=== PATIENT | female | born 1945 | race Caucasian/White ===

== ENCOUNTER 2024-11-21 21:07 | Observation (INO) ==
[2024-11-21] MEDS: DUONEB NEB STA (21:32)
[2024-11-21 21:33] LABS: BASOPHILS % (AUTO) 0.4 % (0.0-3.0); EOSINOPHILS # (AUTO) 0.1 K/ul (0.0-0.7); EOSINOPHILS % (AUTO) 0.6 % (0.0-7.0); HEMATOCRIT 47.9 % (37.0-47.0); HEMOGLOBIN 14.6 g/dl (12.0-16.0); IMMATURE GRANULOCYTE % (AUTO) 0.1 % (0.0-5.0); LYMPHOCYTES # (AUTO) 2.8 K/uL (0.60-3.4); LYMPHOCYTES % (AUTO) 34.9 (10.0-50.0); MEAN CORPUSCULAR HEMOGLOBIN 27.9 pg (27.0-31.0); MEAN CORPUSCULAR HGB CONC 30.5 (31.8-35.4); MEAN CORPUSCULAR VOLUME 91.4 fl (81.0-99.0); MONOCYTES # (AUTO) 0.8 K/uL (0.4-2.0); MONOCYTES % (AUTO) 9.9 (0-10); NEUTROPHILS # (AUTO) 4.3 K/ul (2.0-6.9); NEUTROPHILS % (AUTO) 54.1 % (42.2-75.2); PLATELET COUNT 219 10^3/uL (140-440); RDW COEFFICIENT OF VARIATION 13.5 % (11.6-14.8); RED BLOOD COUNT 5.24 10^6/ul (4.20-5.40); WHITE BLOOD COUNT 7.96 K/ul (4.6-10.2)
[2024-11-21] MEDS: ZOFRAN SDV IVP STA (21:41)
[2024-11-21] MEDS: MORPHINE 4 MG/ML SYRINGE IVP ONE (21:41)
[2024-11-21] MEDS: DECADRON IVP ONE (21:41)
[2024-11-21 21:54] LABS: ALANINE AMINOTRANSFERASE 15.1 U/L (0-35); ALBUMIN 4.51 g/dL (3.5-5.0); ALKALINE PHOSPHATASE 72.7 U/L (53-141); ASPARTATE AMINO TRANSFERASE 25.5 U/L (14-36); BILIRUBIN,TOTAL 0.62 mg/dL (0.2-1.3); BLOOD UREA NITROGEN 22.6 mg/dL (7-17); CALCIUM 9.99 mg/dL (8.4-10.2); CARBON DIOXIDE 25.6 mmol/L (22-30.0); CHLORIDE 102.9 mmol/L (98-107); CREATININE 0.93 mg/dL (0.60-1.30); GLUCOSE 90.5 mg/dL (74-106); MAGNESIUM 1.98 mg/dL (1.6-2.3); POTASSIUM 4.22 mmol/L (3.5-5.1); SODIUM 142.1 mmol/L (134.5-145); TOTAL PROTEIN 7.73 g/dL (6.3-8.2)
[2024-11-21 21:57] LABS: MOLECULAR FLU A NEGATIVE BY NAAT (NEGATIVE); MOLECULAR FLU B NEGATIVE BY NAAT (NEGATIVE); SARS COV-2 RNA RAPID NAAT NEGATIVE (NEGATIVE)
--- NOTE | 2024-11-21 22:00 | DI ---
EXAM: CHEST RADIOGRAPH TECHNIQUE: Single frontal chest radiograph. HISTORY: cp/sob COMPARISON: 01/25/2023 IMPRESSION: No acute findings. The heart size is normal. Mediastinal contours and pulmonary vasculatu re are within normal limits. The lungs are clear. There is no pleural effusion. There is no pneumotho rax.
[2024-11-21 22:10] LABS: TROPONIN I < 0.012 ng/ml (0.0000-0.120)
[2024-11-21 22:17] LABS: ABG O2 HGB 86.8 % (95-100); ABG PH 7.42 (7.35-7.45); BEecf 3.4 (-2.0-3.0); HCO3 27.9 (21-28); MetHb 1.2 (0-1.5); TCO2 29.2 (19-24); sO2 87.1 % (94-98); tHb 14.5 g/dl (11.7-17.4)
[2024-11-21] MEDS ORDERED: ORAPRED PO ONE (22:37)
--- NOTE | 2024-11-21 22:42 | ED.PDOC ---
General HPI ED Provider: Dr. TUCKER MILLER DO Chief Complaint: Shortness of Air Stated Complaint: 79-year-old female presents to the ER with shortness of breath. Arrives by EMS. 1 DuoNeb given en route. No hypoxia noted. History of tobacco use. She is not oxygen dependent at home. Patient arrives and denies any headache, chest pain other than occasionally with deep inspiration, she thinks that she may have had a fever, denies abdominal pain, GI or issues. Medical history reviewed in chart. Poor historian with respect to her blood thinner use that is on her electronic record but not readily evident on her paper record provided at bedside. Time Seen by Provider: 11/21/24 21:10 Information Source: Patient and EMT Nursing and Triage Documentation Reviewed and Agree: Yes Opioid Naive vs. Tolerant What is Opioid Naive?: *Opioid Naive implies the patient is not already taking opioids or not chronically receiving opioids on a daily basis. *PRN dosing is not "usually" associated with tolerance. *Patients are at higher risk of over-sedation and aspiration. What is Opioid Tolerant?: *Opioid Tolerance implies less than the expected response to an opioid. *Acquired tolerance is defined by the patient taking 60mg of oral morphine daily (or equianalgesic dose of another opioid) for 1 week or more. *Often associated with chronic pain. *May take more than usual dose to achieve desired pain control. Review of Systems Review Of Systems Constitutional: Reports No symptoms All Other Systems: Reviewed and Negative [facility] Female Reproductive History Menstrual Hx Hysterectomy: No Hx Tubal Ligation: No Physical Exam Physical Exam Appearance: Reports Well-appearing, No pain distress and Well-nourished Eyes: Reports ROCKY, EOMI and Conjunctiva clear ENT: Reports Nose normal and Oropharynx normal Respiratory: Reports Airway patent, Breath sounds clear, Breath sounds equal and Respirations nonlabored Cardiovascular: Reports RRR and Pulses normal GI/: Reports Soft and Nontender Musculoskeletal: Reports Normal strength and ROM intact Skin: Reports Warm, Dry and Normal color Neurological: Reports Sensation intact, Motor intact, Alert and Oriented Psychiatric: Reports Affect appropriate and Mood appropriate Interpretation EKG Interpretation EKG Interpretation By: ED Physician Time of EKG #1: 21:45 Rate: Normal (90) Rhythm: Sinus Ectopy: None [place]: Left ST Segment: Normal Interpretation: Flipped T waves anteriorly. No acute ischemia Radiology Interpretation Radiology Interpretation By: Radiologist Radiology Results: No acute changes Exam Interpreted: CXR Re-Evaluation Re-Evaluation Additional Comments: 79-year-old female presents with shortness of breath. She is not hypoxic nor tachycardic on presentation but she does report shortness of breath and occasional pain with deep inspiration. PE on the differential but less likely given her vital signs and overall presentation. Due to the chest pain however this must remain on the differential. Low suspicion for other acute cardiopulmonary process to include but not limited to ACS, IL, PE, pneumothorax, dissection or tamponade. She is afebrile nontoxic doubt sepsis. She does report the possibility of subjective fever, therefore viral swabs will be obtained in addition to laboratory workup. Will look for signs of various infectious etiologies. Chest x-ray read as stable. ABG obtained which did demonstrate a hypoxemia although she was not acidotic nor appearing to retain CO2 given her history of tobacco use. Given the hypoxemia, we did place supplemental oxygen on her and she was resting comfortably after symptomatic treatment. I discussed case with the hospitalist service who was gracious to accept. On further review of the reported to me that they were able to find in the chart that the patient was known to be noncompliant with her warfarin therefore requested a CTA of the chest prior to moving the patient to the floor 0010: CTA shows a distal/peripheral PE without right heart strain. In setting of a negative troponin and BNP as well as no heart strain on imaging and stable vital signs, this patient will be given a shot of Lovenox and sent to the floor where they could decide to continue the warfarin which she was noncompliant with and has a normal INR here today, or what ever other choice they may consider Physician Progress Note Physician Progress Note: All EKGs and plain film imaging independently reviewed and interpreted by me unless stated otherwise. CTs interpreted by radiology unless otherwise stated. All pediatric patients are accompanied by parent or legal guardian as primary historian and/or validate patient report unless otherwise stated. Critical Care Note Critical Care Note Total Critical Care Time (mins): 150 Comments: Critical care due to the patient's chest pain and need for workup for chest pain rule out. Found to have hypoxemia on ABG and supplemental oxygen given to prevent endorgan damage. PE then later identified and antiplatelet therapy immediately started to prevent life-threatening sequelae if left untreated. Course Course 11/21/24 21:27 11/21/24 21:27 Orders, Labs, Meds: Lab Review 11/21/24 11/21/24 21:27 22:10 WBC 7.96 RBC 5.24 Hgb 14.6 Hct 47.9 H MCV 91.4 MCH 27.9 MCHC 30.5 L RDW Coeff of Maryellen 13.5 Plt Count 219 Immature Gran % (Auto) 0.1 Neut % (Auto) 54.1 Lymph % (Auto) 34.9 Whitley % (Auto) 9.9 Eos % (Auto) 0.6 Baso % (Auto) 0.4 Neut # (Auto) 4.3 Lymph # (Auto) 2.8 Whitley # (Auto) 0.8 Eos # (Auto) 0.1 Baso # (Auto) 0.0 Immature Gran # (Auto) 0.0 PT 9.7 INR 0.93 Puncture Site [place] [employer] Excess 3.4 H O2 Saturation 87.1 L ABG pH 7.42 ABG pCO2 43.0 ABG pO2 52.0 L* ABG HCO3 27.9 ABG Total CO2 29.2 H Salvador Test Pos Hemoglobin 1.2 Oxyhemoglobin 86.8 L Carboxyhemoglobin 4.0 H Total Hemoglobin 14.5 FiO2 % 21.0 Sodium 142.1 Potassium 4.22 Chloride 102.9 Carbon Dioxide 25.6 Anion Gap 17.82 BUN 22.6 H Creatinine 0.93 Estimated GFR (MDRD) 58.00 BUN/Creatinine Ratio 24.30 Glucose 90.5 Calcium 9.99 Magnesium 1.98 Total Bilirubin 0.62 AST 25.5 ALT 15.1 Alkaline Phosphatase 72.7 Troponin I < 0.012 NT-Pro-B Natriuret Pep 61 Total Protein 7.73 Albumin 4.51 Globulin 3.22 Albumin/Globulin Ratio 1.40 Influ A Molecular Assay Negative by naat Influ B Molecular Assay Negative by naat SARS CoV-2 RNA Rapid JAYMIE Negative Orders Category Date Time Status ADMIT OBSERVATION [PLACE PATIENT OBSERVATION] .TO ADMISSION 11/21/24 22:41 Active MEDSURG (MONITORED BED) ABG DRAW REQUEST Stat CARDIO 11/21/24 21:13 Completed EKG-(ED ONLY) Stat CARDIO 11/21/24 21:13 Completed NEBULIZER TREATMENT Routine CARDIO 11/21/24 22:47 Ordered NEBULIZER TREATMENT Stat CARDIO 11/21/24 21:13 Completed OXYGEN Routine CARDIO 11/21/24 22:46 Ordered ACTIVITY .Early Mobilization for VTE Prevention CARE 11/21/24 22:45 Active INTAKE & OUTPUT Q8HR CARE 11/21/24 22:45 Active TELEMETRY MONITORING TELE CARE 11/21/24 22:41 Active VITAL SIGNS Q4HR CARE 11/21/24 22:45 Active CARDIAC DIET DIETARY 11/22/24 Breakfast Ordered ABG COOX Stat LAB 11/21/24 22:10 Completed CBC W/ AUTO DIFF DAILY@0600 LAB 11/22/24 06:00 Ordered CBC W/ AUTO DIFF DAILY@0600 LAB 11/23/24 06:00 Ordered CBC W/ AUTO DIFF Stat LAB 11/21/24 21:27 Completed CMP [COMPREHENSIVE METABOLIC PANEL] Stat LAB 11/21/24 21:27 Completed COMPREHENSIVE METABOLIC PANEL DAILY@0600 LAB 11/22/24 06:00 Ordered COMPREHENSIVE METABOLIC PANEL DAILY@0600 LAB 11/23/24 06:00 Ordered COVID [SARS COV-2 RNA RAPID JAYMIE] Stat LAB 11/21/24 21:27 Completed ED PROBNP [NT-PROBNP(ED)] Stat LAB 11/21/24 21:27 Completed FLU A & B MOLECULAR [FLU A/B MOLECULAR] Stat LAB 11/21/24 21:27 Completed INR [PT WITH INR] Stat LAB 11/21/24 21:27 Completed MAGNESIUM Stat LAB 11/21/24 21:27 Completed TROPONIN I Stat LAB 11/21/24 21:27 Completed Acetaminophen [Tylenol] Meds 11/21/24 22:45 Active 650 mg PO Q4H PRN Albuterol Sulfate 0.083% Neb [Albuterol 0.083% Neb] Meds 11/21/24 22:45 Active 2.5 mg NEB RTQ4H PRN Azithromycin [Zithromax] Meds 11/21/24 23:00 Active 500 mg PO DAILY@2300 Ceftriaxone/D5w 1 gm Premix [Rocephin 1 gm/50 ml D5w] Meds 11/21/24 23:00 Discontinued 1 gm in 50 ml IV DAILY Dexamethasone Sod Phosphate [Decadron] Meds 11/21/24 21:13 Discontinued 10 mg IVP ONCE ONE Ipratropium/Albuterol Neb [Duoneb] Meds 11/21/24 21:13 Discontinued 3 ml NEB ONCE STA Ipratropium/Albuterol Neb [Duoneb] Meds 11/22/24 00:00 Active 3 ml NEB RTQ6H Methylprednisolone Sod Succ/Pf [Solu-Medrol 40 mg] Meds 11/22/24 05:00 Active 40 mg IVP Q8HR Morphine Sulfate [Morphine 4 mg/ml Syringe] Meds 11/21/24 21:34 Discontinued 4 mg IVP ONCE ONE Ondansetron HCl/Pf [Zofran Sdv] Meds 11/21/24 21:34 Discontinued 4 mg IVP ONCE STA CHEST, 1V AP ONLY Stat RADS 11/21/24 21:13 Completed Medications Generic Name Dose Route Start Last Admin Trade Name Freq PRN Reason Stop Dose Admin Acetaminophen 650 mg 11/21/24 22:45 Acetaminophen 325 Mg Tablet PO Q4H PRN Mild Pain Albuterol Sulfate 2.5 mg 11/21/24 22:45 Albuterol Sulfate 0.083% Vial.Neb NEB RTQ4H PRN Wheezing Albuterol/Ipratropium 3 ml 11/22/24 00:00 Ipratropium/Albuterol Vial.Neb NEB RTQ6H LUCÍA Aspirin 81 mg 11/22/24 07:30 Aspirin 81 Mg Tab.Chew PO DAILYWM2 [facility] Atorvastatin Calcium 80 mg 11/22/24 09:00 Atorvastatin Calcium 20 Mg Tablet PO DAILY [facility] Azelastine HCl 2 spray 11/22/24 09:00 Azelastine Hcl 30 Ml Nasal [place] THOMAS BID [facility] Azithromycin 500 mg 11/21/24 23:00 Azithromycin 250 Mg Tablet PO 11/24/24 22:59 DAILY@2300 [facility] Cholecalciferol 5,000 unit 11/22/24 09:00 Cholecalciferol (Vitamin D3) 1,000 Unit (25 Mcg) Tablet PO DAILY [facility] CEFTRIAXONE/D5W 1 GM PREMIX 1 gm in 50 mls @ 100 mls/hr 11/21/24 23:00 Rocephin 1 Gm/50 Ml D5w IV 11/24/24 22:59 DAILY@2300 [facility] Loratadine 10 mg 11/22/24 09:00 Loratadine 10 Mg Tablet PO DAILY [facility] Losartan Potassium 100 mg 11/22/24 09:00 Losartan Potassium 100 Mg Tablet PO DAILY [facility] Methylprednisolone Sodium Succinate 40 mg 11/22/24 05:00 Methylprednisolone Sod Succ/Pf 40 Mg/Ml Vial IVP Q8HR [facility] Montelukast Sodium 10 mg 11/22/24 17:00 Montelukast Sodium 10 Mg Tablet PO QPM [facility] Multivitamins 1 tab 11/22/24 09:00 Multivitamin 1 Tab PO DAILY [facility] Omeprazole 40 mg 11/22/24 06:30 Omeprazole 20 Mg Capsule.Dr PO DAILY@0630 [facility] Ondansetron HCl 4 mg 11/21/24 22:48 Ondansetron Hcl/Pf 4 Mg/2 Ml Sdv IVP Q6H PRN Nausea / Vomiting Discontinued Medications Generic Name Dose Route Start Last Admin Trade Name Freq PRN Reason Stop Dose Admin Albuterol/Ipratropium 3 ml 11/21/24 21:13 11/21/24 21:32 Ipratropium/Albuterol Vial.Neb NEB 11/21/24 21:14 3 ml ONCE STA Administration Dexamethasone Sodium Phosphate 10 mg 11/21/24 21:13 11/21/24 21:41 Dexamethasone Sod Phos 10 Mg/Ml Inj IVP 11/21/24 21:14 10 mg ONCE ONE Administration Enoxaparin Sodium 100 mg 11/22/24 00:24 11/22/24 00:30 Enoxaparin Sodium 100 Mg/Ml Syr SUBCUT 11/22/24 00:25 100 mg ONCE STA Administration CEFTRIAXONE/D5W 1 GM PREMIX 1 gm in 50 mls @ 100 mls/hr 11/21/24 23:00 Rocephin 1 Gm/50 Ml D5w IV 11/24/24 22:59 DAILY [facility] Iodixanol 100 ml 11/21/24 23:33 11/21/24 23:35 Iodixanol 320 Mg/Ml 100ml IVP 11/21/24 23:34 100 ml ONCE ONE Administration Morphine Sulfate 4 mg 11/21/24 21:34 11/21/24 21:41 Morphine Sulfate 4 Mg/Ml Syringe IVP 11/21/24 21:35 4 mg ONCE ONE Administration Ondansetron HCl 4 mg 11/21/24 21:34 11/21/24 21:41 Ondansetron Hcl/Pf 4 Mg/2 Ml Sdv IVP 11/21/24 21:35 4 mg ONCE STA Administration Vital Signs: Temp Pulse Resp BP Pulse Ox O2 Del Method O2 Flow Rate 11/21/24 22:23 96 Nasal Cannula 2 11/21/24 21:08 97.3 F L 81 18 140/72 99 Discharge Plan Discharge Patient Disposition: PLACED OBSERVATION Discharge Problem: Hypoxemia, Acute dyspnea, Tobacco use Did you review [place] TRANSPORTATION [place] for ALL controlled substances?: Not Applicable ED Provider: TUCKER MILLER Condition: Stable
[2024-11-21] MEDS ORDERED: TYLENOL PO PRN (22:45)
[2024-11-21] MEDS ORDERED: ALBUTEROL 0.083% NEB NEB PRN (22:45)
[2024-11-21 22:48] LABS: PROTHROMBIN TIME 9.7 SEC (9.3-11.0)
[2024-11-21] MEDS ORDERED: ZOFRAN SDV IVP PRN (22:48)
[2024-11-21] MEDS: VISIPAQUE 320 MG/ML 100ML IVP ONE (23:35)
[2024-11-22] MEDS ORDERED: LOVENOX SUBCUT STA (00:26)
--- NOTE | 2024-11-22 00:27 | CT ---
EXAM: CHEST CTA WITH CONTRAST (PULMONARY ARTERY) HISTORY: Shortness of breath. TECHNIQUE: CTA acquisition of the chest from the thoracic inlet to the upper abdomen following IV con trast administration timed to filling of the pulmonary artery. 3D/MIP/VR images were utilized. COMPARISON: CT angiogram 10/24/2024. FINDINGS: Lines, Tubes, Devices: None. Pulmonary arteries: - Diagnostic quality: Adequate. - Central(Main/Lobar/Interlobar): No embolus. - Peripheral (Segmental/Subsegmental): There are multiple nonocclusive segmental subsegmental emboli in the right lower lobe in the right lower lobe - Right ventricle/Left ventricle ratio (normal <0.9): Normal. - Main pulmonary artery: Normal caliber. Lung Parenchyma, Pleura, and Airways: Trace secretions in the trachea. Mild subpleural atelectasis in the lower lobes. Trace right pleural effusion. Calcified granuloma in the right middle lobe. Thoracic Inlet, Mediastinum, and [place]: Thyroid gland is unremarkable. Calcified granulomas in mediast inum. Heart, Vessels, and Pericardium: Scattered atherosclerotic calcifications in the aorta. Coronary flash ry calcifications. No cariomegaly. Trace pericardial fluid. Bones and Soft Tissues: Multilevel degenerative spondylosis. Osseous demineralization. Degenerative c hanges of the shoulders. Upper Abdomen: Bilateral nephrolithiasis. Benign cysts in the right kidney and the liver. Moderate le ft renal atrophy. Calcified granulomas in the liver and spleen. IMPRESSION: Exam is positive for nonocclusive segmental and occlusive subsegmental emboli in the right lower lobe . No evidence of right heart strain. ASCVD. Bilateral nephrolithiasis. Trace right pleural effusion. Communication: Dr. Pritesh Phillips conveyed the urgent result to Dr. Nguyen Mariee on 11/22/[address] scans are performed using dose optimization techniques as appropriate to the performed exam an d include at least one of the following: Automated exposure control, adjustment of the mA and/or kV according t o size, and the use of iterative reconstruction technique.
[2024-11-22] MEDS: LOVENOX SUBCUT STA (00:30)
[2024-11-22] MEDS: DUONEB NEB SCH (00:33)
[2024-11-22] MEDS: ZITHROMAX PO SCH ×2 (01:23→21:43)
[2024-11-22] MEDS: ROCEPHIN 1 GM/50 ML D5W 1 GM/50 ML BAG IV SCH ×3 (01:24→21:41)
[2024-11-22 02:32] VITALS: BMI 26.0
[2024-11-22] MEDS: SOLU-MEDROL 40 MG IVP SCH (05:37)
[2024-11-22] MEDS: PRILOSEC PO SCH (05:37)
[2024-11-22 05:46] LABS: BASOPHILS % (AUTO) 0.2 % (0.0-3.0); HEMOGLOBIN 13.5 g/dl (12.0-16.0); IMMATURE GRANULOCYTE % (AUTO) 0.2 % (0.0-5.0); LYMPHOCYTES # (AUTO) 0.5 K/uL (0.60-3.4); LYMPHOCYTES % (AUTO) 11.4 (10.0-50.0); MEAN CORPUSCULAR HEMOGLOBIN 28.4 pg (27.0-31.0); MEAN CORPUSCULAR HGB CONC 31.4 (31.8-35.4); MEAN CORPUSCULAR VOLUME 90.5 fl (81.0-99.0); MONOCYTES # (AUTO) 0.1 K/uL (0.4-2.0); MONOCYTES % (AUTO) 1.5 (0-10); NEUTROPHILS # (AUTO) 3.6 K/ul (2.0-6.9); NEUTROPHILS % (AUTO) 86.7 % (42.2-75.2); PLATELET COUNT 166 10^3/uL (140-440); RDW COEFFICIENT OF VARIATION 13.2 % (11.6-14.8); RED BLOOD COUNT 4.75 10^6/ul (4.20-5.40); WHITE BLOOD COUNT 4.11 K/ul (4.6-10.2)
[2024-11-22 06:00] LABS: ALANINE AMINOTRANSFERASE 13.4 U/L (0-35); ALBUMIN 3.87 g/dL (3.5-5.0); ALKALINE PHOSPHATASE 75.3 U/L (53-141); ASPARTATE AMINO TRANSFERASE 21.3 U/L (14-36); BILIRUBIN,TOTAL 0.46 mg/dL (0.2-1.3); BLOOD UREA NITROGEN 19.9 mg/dL (7-17); CALCIUM 9.4 mg/dL (8.4-10.2); CARBON DIOXIDE 24.7 mmol/L (22-30.0); CHLORIDE 103.1 mmol/L (98-107); CREATININE 0.89 mg/dL (0.60-1.30); GLUCOSE 192.1 mg/dL (74-106); POTASSIUM 4.9 mmol/L (3.5-5.1); TOTAL PROTEIN 6.75 g/dL (6.3-8.2)
[2024-11-22] MEDS: COZAAR PO SCH (08:59)
[2024-11-22] MEDS: ASPIRIN CHEWABLE PO SCH (08:59)
[2024-11-22] MEDS: VITAMIN D PO SCH (08:59)
[2024-11-22] MEDS: CLARITIN PO SCH (08:59)
[2024-11-22] MEDS: MULTIVITAMIN TABLET PO SCH (08:59)
[2024-11-22] MEDS: LIPITOR PO SCH (08:59)
[2024-11-22] MEDS: ASTELIN 0.1% NAS SCH (09:00)
--- NOTE | 2024-11-22 11:33 | PCM ---
Date of Service Date Seen by Provider: 11/22/24 Time Seen by Provider: 08:45 Admit Day/Time Admission Date: 11/22/24 Reason for Admission Chief Complaint: HYPOXEMIA Hospital Provider Hospital Provider[facility]S [facility]UMAR[facility] History of Present Illness History of Present Illness: 79 yo female with pmh of GERD, HTN, HLD, smoking, and allergies presented to the ER with complaints of shortness of breath. Per ER provider, patient had no other symptoms and stated she could not breathe. VSS normal. ABG completed and showed PO2 in the 50s. She was placed on 2L. Chest xray normal. Labs normal. Upon review, patient was unsure what medications she takes. Coumadin noted on list but is unsure if she has been taking it and had not had INR checked. PCP noted she prescribed pradaxa due to patient refusing to come in for INR checks but patient has not been taking that. INR was 0.9. Requested CTA due to hx of recurrent DVT and patient found to have nonocclusive and occlusive PE present. Patient unable to provide history due to reported "memory loss". This is also documented in PCP notes. She is oriented to person and place, knows that it is October but states year is 2023, unsure why she is in the hospital and unsure if she is in [place] or where. Does not know how she got to the hospital or why. Lives at home with daughter and son-in-law. Admitted to med/surg observation. Case Discussed With Case Discussed With: Patient's case was discussed with the ER Physicians, Dr. Mariee. [facility] Medical History DVT (deep venous thrombosis) I82.409 - Acute embolism and thrombosis of unspecified deep veins of unspecified lower extremity (ICD-10) Memory loss R41.3 - Other amnesia (ICD-10) Chronic back pain M54.9 - Dorsalgia, unspecified (ICD-10) G89.29 - Other chronic pain (ICD-10) Hypertension I10 - Essential (primary) hypertension (ICD-10) Kidney stone N20.0 - Calculus of kidney (ICD-10) Surgical History H/O lithotripsy Z98.890 - Other specified postprocedural states (ICD-10) Social History Smoking and tobacco status: Current every day smoker Allergies Allergies Allergy/AdvReac Type Severity Reaction Status Date / Time No Known Allergies Allergy Verified 11/21/24 21:08 Current Medications Home Medications Acetaminophen (Acetaminophen 325 Mg Tablet) 650 mg PO Q4H PRN PRN Reason: Mild Pain Albuterol Sulfate (Albuterol Sulfate 0.083% Vial.Neb) 2.5 mg NEB RTQ4H PRN PRN Reason: Wheezing Albuterol/Ipratropium (Ipratropium/Albuterol Vial.Neb) 3 ml NEB RTQ6H LUCÍA Last Admin: 11/22/24 05:09 Dose: 3 ml Aspirin (Aspirin 81 Mg Tab.Chew) 81 mg PO DAILYWM2 LUCÍA Last Admin: 11/22/24 08:59 Dose: 81 mg Atorvastatin Calcium (Atorvastatin Calcium 20 Mg Tablet) 80 mg PO DAILY LUCÍA Last Admin: 11/22/24 08:59 Dose: 80 mg Azelastine HCl (Azelastine Hcl 30 Ml Nasal [place]) 2 spray THOMAS BID LUCÍA Last Admin: 11/22/24 09:00 Dose: 2 spray Azithromycin (Azithromycin 250 Mg Tablet) 500 mg PO BEDTIME LCUÍA Stop: 11/24/24 22:59 Cholecalciferol (Cholecalciferol (Vitamin D3) 1,000 Unit (25 Mcg) Tablet) 5,000 unit PO DAILY LUCÍA Last Admin: 11/22/24 08:59 Dose: 5,000 unit CEFTRIAXONE/D5W 1 GM PREMIX (Rocephin 1 Gm/50 Ml D5w) 1 gm in 50 mls @ 100 mls/hr IV BEDTIME LUCÍA Stop: 11/24/24 22:59 Loratadine (Loratadine 10 Mg Tablet) 10 mg PO DAILY LUCÍA Last Admin: 11/22/24 08:59 Dose: 10 mg Losartan Potassium (Losartan Potassium 100 Mg Tablet) 100 mg PO DAILY LUCÍA Last Admin: 11/22/24 08:59 Dose: 100 mg Methylprednisolone Sodium Succinate (Methylprednisolone Sod Succ/Pf 40 Mg/Ml Vial) 40 mg IVP Q8HR LUCÍA Last Admin: 11/22/24 05:37 Dose: 40 mg Montelukast Sodium (Montelukast Sodium 10 Mg Tablet) 10 mg PO QPM [facility], [facility] Multivitamins (Multivitamin 1 Tab) 1 tab PO DAILY [facility] Last Admin: 11/22/24 08:59 Dose: 1 tab Omeprazole (Omeprazole 20 Mg Capsule.) 40 mg PO DAILY@0630 [facility], [facility] Last Admin: 11/22/24 05:37 Dose: 40 mg Ondansetron HCl (Ondansetron Hcl/Pf 4 Mg/2 Ml Sdv) 4 mg IVP Q6H PRN PRN Reason: Nausea / Vomiting Rivaroxaban (Rivaroxaban 10 Mg Tablet) 15 mg PO BID [facility] Stop: 12/13/24 11:34 aspirin 81 mg tablet 81 mg PO DAILY 11/25/21 [History Confirmed 11/21/24] atorvastatin 80 mg tablet 80 mg PO DAILY 11/25/21 [History Confirmed 11/21/24] loratadine 10 mg tablet 10 mg PO DAILY 11/25/21 [History Confirmed 11/21/24] losartan 50 mg tablet 50 mg PO DAILY 11/25/21 [History Confirmed 11/21/24] montelukast 10 mg tablet 10 mg PO QPM 11/25/21 [History Confirmed 11/21/24] multivitamin 1 tab PO DAILY 11/25/21 [History Confirmed 11/21/24] azelastine 137 mcg (0.1 %) nasal spray 2 spray intranasal BID 11/19/22 [History Confirmed 11/21/24] ondansetron 4 mg disintegrating tablet 4 mg PO Q6H PRN nausea and vomiting #10 tabs 11/19/22 [Rx Confirmed 11/21/24] warfarin 5 mg tablet 5 mg PO DAILY 08/21/23 [History Confirmed 11/21/24] nitrofurantoin macrocrystal 100 mg capsule (Macrodantin) 100 mg PO BEDTIME #7 caps 08/22/23 [Rx Confirmed 11/21/24] methocarbamol 500 mg tablet 500 mg PO QID PRN Back Pain #28 tabs 10/24/24 [Rx Confirmed 11/21/24] cholecalciferol (vitamin D3) 125 mcg (5,000 unit) capsule 125 mcg PO DAILY 11/21/24 [History Confirmed 11/21/24] losartan 100 mg tablet 100 mg PO DAILY 11/21/24 [History Confirmed 11/21/24] omeprazole 40 mg capsule,delayed release 40 mg PO DAILY 11/21/24 [History Confirmed 11/21/24] Opioid Naive vs. Tolerant Does Patient Take Opioids?: No Is Patient Opioid Naive?: Yes What is Opioid Naive?: *Opioid Naive implies the patient is not already taking opioids or not chronically receiving opioids on a daily basis. *PRN dosing is not "usually" associated with tolerance. *Patients are at higher risk of over-sedation and aspiration. Is Patient Opioid Tolerant?: No What is Opioid Tolerant?: *Opioid Tolerance implies less than the expected response to an opioid. *Acquired tolerance is defined by the patient taking 60mg of oral morphine daily (or equianalgesic dose of another opioid) for 1 week or more. *Often associated with chronic pain. *May take more than usual dose to achieve desired pain control. Review of Systems Constitutional: Reports No symptoms Head: Reports Normocephalic Eyes: Reports No symptoms Ears: Reports No symptoms Nose: Reports No symptoms Mouth: Reports No symptoms Throat: Reports No symptoms Cardiovascular: Reports No symptoms Respiratory: Reports Cough and Shortness of air Gastrointestinal: Reports No symptoms Genitourinary: Reports No Symptoms Musculoskeletal: Reports No symptoms Endocrine: Reports No symptoms Hematology: Reports No symptoms Immunology: Reports No symptoms Neurological: Reports No symptoms Psychiatric: Reports No symptoms Physical examination Most Recent Vital Signs: Most Recent Vital Signs Temperature 96.8 F L 11/22/24 10:00 Temperature Source Temporal Artery Scan 11/22/24 10:00 Temperature Source Infrared 11/21/24 21:08 Pulse Rate 71 11/22/24 10:00 Respiratory Rate 14 11/22/24 10:00 Blood Pressure 126/53 L 11/22/24 10:00 Blood Pressure Mean 77 11/22/24 10:00 Blood Pressure Left Arm 144/78 11/22/24 01:00 Blood Pressure Location Right Arm 11/22/24 10:00 Blood Pressure Position Supine 11/22/24 05:59 O2 Sat by Pulse Oximetry 100 11/22/24 10:00 Oxygen Delivery Method Nasal Cannula 11/22/24 10:00 Oxygen Flow Rate 2 11/22/24 10:00 Height 5 ft 6 in 11/22/24 01:00 Weight 73.2 kg 11/22/24 01:00 Telemetry Type Remote Telemetry 11/22/24 07:00 Telemetry Monitoring Continues 11/22/24 07:00 Telemetry Heart Rate 67 11/22/24 07:00 Telemetry SPO2 95 11/22/24 07:00 EKG ID Interval 0.18 11/22/24 07:00 EKG QRS Interval 0.08 11/22/24 07:00 Telemetry Strip Reading sr 11/22/24 07:00 Appearance: Positive No Apparent Distress, Alert and Oriented x3 and Ill- Appearing Skin: Positive Warm and Good Turgor HEENT: Positive Normocephalic and PERRLA Neck: Positive Supple and Midline Trachea Chest/Lungs: Positive Symmetrical With Equal Breath Sounds, Wheezes (mild expiratory lung bases) and Good Air Movement all 4 Lung Phillip Heart: Positive RRR and Pulses Normal GI/: Positive Soft, Nontender, Bowel Sounds Normal and No Distention Musculoskeletal: Positive Not Examined Extremities: Positive Intact Peripheral Pulses, Stable Joints Without Laxity and Good ROM in All Joints Neurological: Positive Sensation Intact, Motor intact, Reflexes Intact, Alert, Oriented (person, place), Disorinted (time, situation) and Muscle Strength 5/5 in Upper and Lower Extremities Bilaterally Labs This Visit Labs This Visit: Labs This Visit 11/21/24 11/21/24 11/22/24 21:27 22:10 05:00 WBC 7.96 4.11 L RBC 5.24 4.75 Hgb 14.6 13.5 Hct 47.9 H 43.0 MCV 91.4 90.5 MCH 27.9 28.4 MCHC 30.5 L 31.4 L RDW Coeff of Maryellen 13.5 13.2 Plt Count 219 166 Immature Gran % (Auto) 0.1 0.2 Neut % (Auto) 54.1 86.7 H Lymph % (Auto) 34.9 11.4 Mcleod % (Auto) 9.9 1.5 Eos % (Auto) 0.6 0.0 Baso % (Auto) 0.4 0.2 Neut # (Auto) 4.3 3.6 Lymph # (Auto) 2.8 0.5 L Mcleod # (Auto) 0.8 0.1 L Eos # (Auto) 0.1 0.0 Baso # (Auto) 0.0 0.0 Immature Gran # (Auto) 0.0 0.0 PT 9.7 INR 0.93 Puncture Site [place] Excess 3.4 H O2 Saturation 87.1 L ABG pH 7.42 ABG pCO2 43.0 ABG pO2 52.0 L* ABG HCO3 27.9 ABG Total CO2 29.2 H Salvador Test Pos Hemoglobin 1.2 Oxyhemoglobin 86.8 L Carboxyhemoglobin 4.0 H Total Hemoglobin 14.5 FiO2 % 21.0 Sodium 142.1 139.0 Potassium 4.22 4.90 Chloride 102.9 103.1 Carbon Dioxide 25.6 24.7 Anion Gap 17.82 16.10 BUN 22.6 H 19.9 H Creatinine 0.93 0.89 Estimated GFR (MDRD) 58.00 62.00 BUN/Creatinine Ratio 24.30 22.35 Glucose 90.5 192.1 H D Calcium 9.99 9.40 Magnesium 1.98 Total Bilirubin 0.62 0.46 AST 25.5 21.3 ALT 15.1 13.4 Alkaline Phosphatase 72.7 75.3 Troponin I < 0.012 NT-Pro-B Natriuret Pep 61 Total Protein 7.73 6.75 Albumin 4.51 3.87 Globulin 3.22 2.88 Albumin/Globulin Ratio 1.40 1.34 Influ A Molecular Assay Negative by naat Influ B Molecular Assay Negative by naat SARS CoV-2 RNA Rapid JAYMIE Negative Imaging Imaging: EXAM: CHEST CTA WITH CONTRAST (PULMONARY ARTERY) FINDINGS: Lines, Tubes, Devices: None. Pulmonary arteries: - Diagnostic quality: Adequate. - Central(Main/Lobar/Interlobar): No embolus. - Peripheral (Segmental/Subsegmental): There are multiple nonocclusive segmental subsegmental emboli in the right lower lobe in the right lower lobe - Right ventricle/Left ventricle ratio (normal <0.9): Normal. - Main pulmonary artery: Normal caliber. Lung Parenchyma, Pleura, and Airways: Trace secretions in the trachea. Mild subpleural atelectasis in the lower lobes. Trace right pleural effusion. Calcified granuloma in the right middle lobe. Thoracic Inlet, Mediastinum, and Malaika: Thyroid gland is unremarkable. Calcified granulomas in mediastinum. Heart, Vessels, and Pericardium: Scattered atherosclerotic calcifications in the aorta. Coronary artery calcifications. No cariomegaly. Trace pericardial fluid. Bones and Soft Tissues: Multilevel degenerative spondylosis. Osseous demineralization. Degenerative changes of the shoulders. Upper Abdomen: Bilateral nephrolithiasis. Benign cysts in the right kidney and the liver. Moderate left renal atrophy. Calcified granulomas in the liver and spleen. IMPRESSION: Exam is positive for nonocclusive segmental and occlusive subsegmental emboli in the right lower lobe. No evidence of right heart strain. ASCVD. Bilateral nephrolithiasis. Trace right pleural effusion. Review Statement Review Statement: I have independently reviewed and interpreted the labs/EKGs/imaging that were ordered by the ER provider. I have reviewed all outside records that are available currently in our EMR including imaging/notes/labs from previous visits. Plan Plan: 1. Acute Hypoxic Respiratory Failure d/t COPD Exacerbation & PE - wean oxygen as tolerated, steroids, nebs 2. COPD Exacerbation - rocephin, azith, steroids, nebs 3. Nonocclusive segmental and occlusive subsegmental PE to R lower lobe - Xarelto 15 mg BID x 21 days then 20 mg daily thereafter 4. HTN - chronic, continue home medications 5. HLD - chronic. continue home medications DVT Prophylaxis: Xarelto Time Spent: Greater than 80 minutes spent with patient, 50% of the time spent with this patient was devoted to counseling and coordination of care. Advanced Care Plannin minutes spent discussing advance care planning. Smoking Cessation: 3-10 minutes spent discussing smoking cessation. Disposition: Admit to: Med/Surg Observation DNR Discussed Plan of Care with Dr. Scotty Edmonds. Medications Medication Orders: Medications Ordered Category Date Time Status Acetaminophen [Tylenol] Meds 11/21/24 22:45 Active 650 mg PO Q4H PRN Albuterol Sulfate 0.083% Neb [Albuterol 0.083% Neb] Meds 11/21/24 22:45 Active 2.5 mg NEB RTQ4H PRN Aspirin [Aspirin Chewable] Meds 11/22/24 07:30 Active 81 mg PO DAILYWM2 Atorvastatin Calcium [Lipitor] Meds 11/22/24 09:00 Active 80 mg PO DAILY Azelastine HCl [Astelin 0.1%] Meds 11/22/24 09:00 Active 2 spray THOMAS BID Azithromycin [Zithromax] Meds 11/22/24 21:00 Active 500 mg PO BEDTIME Ceftriaxone/D5w 1 gm Premix [Rocephin 1 gm/50 ml D5w] Meds 11/22/24 21:00 Active 1 gm in 50 ml IV BEDTIME Cholecalciferol (Vitamin D3) [Vitamin D] Meds 11/22/24 09:00 Active 5,000 unit PO DAILY Ipratropium/Albuterol Neb [Duoneb] Meds 11/22/24 00:00 Active 3 ml NEB RTQ6H Loratadine [Claritin] Meds 11/22/24 09:00 Active 10 mg PO DAILY Losartan Potassium [Cozaar] Meds 11/22/24 09:00 Active 100 mg PO DAILY Methylprednisolone Sod Succ/Pf [Solu-Medrol 40 mg] Meds 11/22/24 05:00 Active 40 mg IVP Q8HR Montelukast Sodium [Singulair] Meds 11/22/24 17:00 Active 10 mg PO QPM Multivitamin [Multivitamin Tablet] Meds 11/22/24 09:00 Active 1 tab PO DAILY Omeprazole [Prilosec] Meds 11/22/24 06:30 Active 40 mg PO DAILY@0630 Ondansetron HCl/Pf [Zofran Sdv] Meds 11/21/24 22:48 Active 4 mg IVP Q6H PRN Rivaroxaban [Xarelto] Meds 11/22/24 11:35 Ordered 15 mg PO BID
[2024-11-22] MEDS: XARELTO PO SCH (13:33)
[2024-11-22] MEDS: SINGULAIR PO SCH (17:19)
[2024-11-23 05:55] VITALS: RESP 18
[2024-11-23 05:58] LABS: HEMATOCRIT 45.6 % (37.0-47.0); HEMOGLOBIN 13.9 g/dl (12.0-16.0); IMMATURE GRANULOCYTE % (AUTO) 0.2 % (0.0-5.0); LYMPHOCYTES % (AUTO) 12.5 (10.0-50.0); MEAN CORPUSCULAR HGB CONC 30.5 (31.8-35.4); MEAN CORPUSCULAR VOLUME 91.8 fl (81.0-99.0); MONOCYTES # (AUTO) 0.4 K/uL (0.4-2.0); MONOCYTES % (AUTO) 4.3 (0-10); NEUTROPHILS # (AUTO) 6.7 K/ul (2.0-6.9); PLATELET COUNT 198 10^3/uL (140-440); RDW COEFFICIENT OF VARIATION 13.3 % (11.6-14.8); RED BLOOD COUNT 4.97 10^6/ul (4.20-5.40); WHITE BLOOD COUNT 8.06 K/ul (4.6-10.2)
[2024-11-23 06:12] LABS: ALBUMIN 4.27 g/dL (3.5-5.0); ALKALINE PHOSPHATASE 72.3 U/L (53-141); ASPARTATE AMINO TRANSFERASE 24.8 U/L (14-36); BILIRUBIN,TOTAL 0.41 mg/dL (0.2-1.3); BLOOD UREA NITROGEN 23.9 mg/dL (7-17); CALCIUM 9.93 mg/dL (8.4-10.2); CARBON DIOXIDE 22.7 mmol/L (22-30.0); CHLORIDE 103.3 mmol/L (98-107); CREATININE 0.93 mg/dL (0.60-1.30); GLUCOSE 161.6 mg/dL (74-106); POTASSIUM 4.44 mmol/L (3.5-5.1); SODIUM 142.9 mmol/L (134.5-145); TOTAL PROTEIN 7.23 g/dL (6.3-8.2)
[2024-11-23 06:28] LABS: ALANINE AMINOTRANSFERASE 27.5 U/L (0-35)
[2024-11-23 10:55] VITALS: BP 124/61; TEMP 97.1
--- NOTE | 2024-11-23 12:23 | DCSUM ---
Admission Date Admission Date: 11/21/24 Discharge Date Discharge Date: 11/23/24 Admission Diagnosis Admission Diagnosis: 1. Acute Hypoxic Respiratory Failure d/t COPD Exacerbation & PE Discharge Diagnosis Discharge Diagnosis: 1. Acute Hypoxic Respiratory Failure d/t PE, resolved 2. Nonocclusive segmental and occlusive subsegmental PE to R lower lobe 3. HTN - chronic, continue home medications 4. HLD - chronic. continue home medications Hospital Provider Hospital Provider: Luiza Oleary PA-C, [facility] Summary of History and Physical Summary of History and Physical: 79 yo female with pmh of GERD, HTN, HLD, smoking, and allergies presented to the ER with complaints of shortness of breath. Per ER provider, patient had no other symptoms and stated she could not breathe. VSS normal. ABG completed and showed PO2 in the 50s. She was placed on 2L. Chest xray normal. Labs normal. Upon review, patient was unsure what medications she takes. Coumadin noted on list but is unsure if she has been taking it and had not had INR checked. PCP noted she prescribed pradaxa due to patient refusing to come in for INR checks but patient has not been taking that. INR was 0.9. Requested CTA due to hx of recurrent DVT and patient found to have nonocclusive and occlusive PE present. Patient unable to provide history due to reported "memory loss". This is also documented in PCP notes. She is oriented to person and place, knows that it is October but states year is 2023, unsure why she is in the hospital and unsure if she is in [place] or where. Does not know how she got to the hospital or why. Lives at home with daughter and son-in-law. Admitted to med/surg observation. Hospital Course Subjective: On evaluation today, patient states her breathing is "fine." No obvious signs of SOB. On RA. Has been ambulatory. Initially states she doesn't know the answer to any questions I ask including orientation questions, who she lives with, who her doctor is, what meds she takes, etc. I questioned if she needs to go to the custodial if she has no one to care for her and is unable to care for herself. She then tells me she lives with her daughter who helps her. States she does not need a custodial at this time. Spoke with patient's daughter Pascale. She is also very unclear on what the patient's medications are despite being the one who picks it up from [employer] for her. States she usually only gets 3 medications. Then while going through her meds, lists off atorvastatin, montelukast, and omeprazole. She is unsure if and when she was last on a blood thinner. States there was some issues with insurance and at one time pradaxa was $100 a month. Per [facility] records, patient was on warfarin but not ever getting her INR checked. Eliquis was prescribed but too costly, then switched to pradaxa. Daughter is unsure why patient stopped pradaxa but also states $100 is costly. Pt has been started on xarelto here in hospital, will send in Xarelto PE/DVT 1 month pack. Discussed importance of taking a blood thinner, nature of PEs/DVTs, and risks. Recommended daughter call PCP tomorrow for f/u apt and to let them know if xarelto is also too costly or to call us as well. Patient and daughter agree to plan of care. Appearance: Pleasant, No Apparent Distress and Alert HEENT: MMM CVS: Other (RRR) Abdomen: Soft, Non-Tender and No Distention Respiratory: No Accessory Muscle Use Extremities: No Edema Vital Signs: Most Recent Vital Signs Temperature 97.1 F L 11/23/24 10:00 Temperature Source Temporal Artery Scan 11/23/24 10:00 Temperature Source Infrared 11/21/24 21:08 Pulse Rate 65 11/23/24 10:00 Respiratory Rate 18 11/23/24 10:00 Blood Pressure 124/61 11/23/24 10:00 Blood Pressure Mean 82 11/23/24 10:00 Blood Pressure Left Arm 144/78 11/22/24 01:00 Blood Pressure Location Right Arm 11/23/24 10:00 Blood Pressure Position Sitting 11/23/24 10:00 O2 Sat by Pulse Oximetry 96 11/23/24 10:00 Oxygen Delivery Method Room Air 11/23/24 11:00 Oxygen Flow Rate 2 11/23/24 05:54 Height 5 ft 6 in 11/22/24 01:00 Weight 73.2 kg 11/22/24 01:00 Telemetry Type Remote Telemetry 11/23/24 01:00 Telemetry Monitoring Continues 11/23/24 01:00 Telemetry Heart Rate 92 11/23/24 01:00 Telemetry SPO2 99 11/23/24 01:00 EKG IL Interval 0.14 11/23/24 01:00 EKG QRS Interval 0.07 11/23/24 01:00 Telemetry Strip Reading sr 11/23/24 01:00 Imaging: EXAM: CHEST CTA WITH CONTRAST (PULMONARY ARTERY) HISTORY: Shortness of breath. TECHNIQUE: CTA acquisition of the chest from the thoracic inlet to the upper abdomen following IV contrast administration timed to filling of the pulmonary artery. 3D/MIP/VR images were utilized. COMPARISON: CT angiogram 10/24/2024. FINDINGS: Lines, Tubes, Devices: None. Pulmonary arteries: - Diagnostic quality: Adequate. - Central(Main/Lobar/Interlobar): No embolus. - Peripheral (Segmental/Subsegmental): There are multiple nonocclusive segmental subsegmental emboli in the right lower lobe in the right lower lobe - Right ventricle/Left ventricle ratio (normal <0.9): Normal. - Main pulmonary artery: Normal caliber. Lung Parenchyma, Pleura, and Airways: Trace secretions in the trachea. Mild subpleural atelectasis in the lower lobes. Trace right pleural effusion. Calcified granuloma in the right middle lobe. Thoracic Inlet, Mediastinum, and Malaika: Thyroid gland is unremarkable. Calcified granulomas in mediastinum. Heart, Vessels, and Pericardium: Scattered atherosclerotic calcifications in the aorta. Coronary artery calcifications. No cariomegaly. Trace pericardial fluid. Bones and Soft Tissues: Multilevel degenerative spondylosis. Osseous demineralization. Degenerative changes of the shoulders. Upper Abdomen: Bilateral nephrolithiasis. Benign cysts in the right kidney and the liver. Moderate left renal atrophy. Calcified granulomas in the liver and spleen. IMPRESSION: Exam is positive for nonocclusive segmental and occlusive subsegmental emboli in the right lower lobe. No evidence of right heart strain. ASCVD. Bilateral nephrolithiasis. Trace right pleural effusion. Communication: Dr. Pritesh Phillips conveyed the urgent result to Dr. Nguyen Mariee on 11/22/2024 at 0018. Lab Results Last 24 Hours: 11/23/24 05:25 WBC 8.06 RBC 4.97 Hgb 13.9 Hct 45.6 MCV 91.8 MCH 28.0 MCHC 30.5 L RDW Coeff of Maryellen 13.3 Plt Count 198 Immature Gran % (Auto) 0.2 Neut % (Auto) 83.0 H Lymph % (Auto) 12.5 [place] % (Auto) 4.3 Eos % (Auto) 0.0 Baso % (Auto) 0.0 Neut # (Auto) 6.7 Lymph # (Auto) 1.0 [place] # (Auto) 0.4 Eos # (Auto) 0.0 Baso # (Auto) 0.0 Immature Gran # (Auto) 0.0 Sodium 142.9 Potassium 4.44 Chloride 103.3 Carbon Dioxide 22.7 Anion Gap 21.34 BUN 23.9 H Creatinine 0.93 Estimated GFR (MDRD) 58.00 BUN/Creatinine Ratio 25.69 Glucose 161.6 H Calcium 9.93 Total Bilirubin 0.41 AST 24.8 ALT 27.5 Alkaline Phosphatase 72.3 Total Protein 7.23 Albumin 4.27 Globulin 2.96 Albumin/Globulin Ratio 1.44 Discharge Instructions Discharge Planning: Discharge Planning > [address] Faisal Edmonds. Discharge Medications: Medications at Discharge (Home Meds & RX) aspirin 81 mg tablet 81 mg PO DAILY 11/25/21 atorvastatin 80 mg tablet 80 mg PO DAILY 11/25/21 loratadine 10 mg tablet 10 mg PO DAILY 11/25/21 montelukast 10 mg tablet 10 mg PO QPM 11/25/21 multivitamin 1 tab PO DAILY 11/25/21 azelastine 137 mcg (0.1 %) nasal spray 2 spray intranasal BID 11/19/22 ondansetron 4 mg disintegrating tablet 4 mg PO Q6H PRN nausea and vomiting #10 tabs 11/19/22 nitrofurantoin macrocrystal 100 mg capsule (Macrodantin) 100 mg PO BEDTIME #7 caps 08/22/23 methocarbamol 500 mg tablet 500 mg PO QID PRN Back Pain #28 tabs 10/24/24 cholecalciferol (vitamin D3) 125 mcg (5,000 unit) capsule 125 mcg PO DAILY 11/21/24 losartan 100 mg tablet 100 mg PO DAILY 11/21/24 omeprazole 40 mg capsule,delayed release 40 mg PO DAILY 11/21/24 rivaroxaban 15 mg (42)-20 mg (9) tablets in a starter pack (Xarelto DVT-PE Treatment 30-Day Starter) See Rx Instructions PO .COMPLEX #51 ea 11/23/24 Discharge Plan Discharge Discharge Orders: Discharge Patient (ONCE); Ordered 11/23/24 Ordered By: LUIZA OLEARY Activity Restrictions/Additional Instructions: DISCHARGE TO HOME DX: PULMONARY EMBOLISM PHARMACY: [facility] PLEASE CALL YOUR DOCTOR TOMORROW MORNING FOR APPOINTMENT YOU'VE BEEN PRESCRIBED A BLOOD THINNER FOR YOUR BLOOD CLOTS IN YOUR LUNG Instructions: Pulmonary Embolism (DC) Patient Disposition: HOME SELF-CARE Prescriptions: New Xarelto DVT-PE Treat 30d Start 15 mg (42)- 20 mg (9) tablets,dose pack See Rx Instructions .ROUTE .COMPLEX Qty: 51 0RF Rx Instructions: take one-15 mg tablet twice daily for 21 days, then one-20 mg tablet once daily; must take with meal/food Continued multivitamin Tablet 1 tab PO DAILY atorvastatin 80 mg Tablet 80 mg PO DAILY montelukast 10 mg Tablet 10 mg PO QPM aspirin 81 mg Tablet 81 mg PO DAILY loratadine 10 mg Tablet 10 mg PO DAILY nitrofurantoin macrocrystal [Macrodantin] 100 mg capsule 100 mg PO BEDTIME Qty: 7 0RF Rx Instructions: must administer with a meal/food methocarbamol 500 mg tablet 500 mg PO QID PRN (Reason: Back Pain) Qty: 28 0RF omeprazole 40 mg capsule,delayed release(DR/EC) 40 mg PO DAILY losartan 100 mg tablet 100 mg PO DAILY cholecalciferol (vitamin D3) 125 mcg (5,000 unit) capsule 125 mcg PO DAILY azelastine 137 mcg (0.1 %) aerosol,spray 2 spray INTRANASAL BID Patient Comments: INSTILL 2 SPRAYS INTO THE NOSTRILS DIRECTED BY PROVIDER TWICE DAILY ondansetron 4 mg tablet,disintegrating 4 mg PO Q6H PRN (Reason: nausea and vomiting) Qty: 10 0RF Discontinued losartan 50 mg Tablet 50 mg PO DAILY warfarin 5 mg tablet 5 mg PO DAILY Patient Comments: TAKE 1 TABLET BY MOUTH EVERY NIGHT Did you review [place] [employer] for ALL controlled substances?: Not Applicable Discussed opioids are addictive and Narcan is available by prescription or from pharmacy.: No Condition: Stable
[2024-11-23 16:16] VITALS: PULSE 80
== END 2024-11-23 13:50 | disposition home or self-care (01) ==
LOC: ED 21:07 → MEDSURG B 21:07
PROVIDERS: ADMIT Hospitalist; ATTEND Nurse Practitioner Family
DX: I26.93 Single subsegmental thrombotic pulmonary embolism without acute cor pulmonale; Z20.822 Contact with and (suspected) exposure to COVID-19; J96.01 Acute respiratory failure with hypoxia; I10 Essential (primary) hypertension; J44.1 Chronic obstructive pulmonary disease with (acute) exacerbation; R05.9 Cough, unspecified; F17.210 Nicotine dependence, cigarettes, uncomplicated; Z74.3 Need for continuous supervision; E78.5 Hyperlipidemia, unspecified